=== PATIENT | female | born 1965 | race Caucasian/White ===

== ENCOUNTER 2018-11-15 22:00 | Emergency (ER) | payer OTHER, SELFPAY ==
[2018-11-15] MEDS ORDERED: HYDROcodone/Acetaminophen 10/325 mg Tablet ONE (23:27)
[2018-11-15] MEDS ORDERED: Ibuprofen 800 MG TAB ONE (23:27)
--- NOTE | 2018-11-15 23:51 | RAD ---
LEFT GREAT TOE THREE VIEWS: 11/15/2018 FINDINGS: A comminuted fracture of the distal phalanx of the great toe is present. There is slight displacemen t. Fracture lines do appear to go into the IP joint. IMPRESSION: Slightly displaced fracture of the distal phalanx. POS: HOME
== END 2018-11-15 23:30 | disposition home or self-care (01) ==
LOC: BURERS 22:00
DX: S92.422A Displaced fracture of distal phalanx of left great toe, initial encounter for closed fracture (principal); F41.9 Anxiety disorder, unspecified; F17.210 Nicotine dependence, cigarettes, uncomplicated; W22.8XXA Striking against or struck by other objects, initial encounter

== ENCOUNTER 2022-02-26 14:34 | Emergency (ER) | payer BC | END 2022-02-26 15:55 | disposition home or self-care (01) | LOC: BURERS 14:34 | DX: J44.1 Chronic obstructive pulmonary disease with (acute) exacerbation (principal); R04.2 Hemoptysis; J06.9 Acute upper respiratory infection, unspecified; F17.210 Nicotine dependence, cigarettes, uncomplicated | CPT/HCPCS: 71046 ==